=== PATIENT | male | born 1945 ===

== ENCOUNTER 2020-07-14 14:48 | Emergency (ER) | payer SELFPAY ==
[~2020-07-14] VITALS: Ht 172.7 cm; Wt 80.5 kg
--- NOTE | 2020-07-14 16:34 | NUR ---
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 JANNY
--- NOTE | 2020-07-14 16:48 | NUR ---
ASSUMED CARE OF PATIENT. PATIENT REPORTS HE WAS SEEN AT THE [facility] TODAY AND WAS TOLD HIS RIGHT SHOULDER IS DISLOCATED AND HE WAS SENT TO THE ER. VS STABLE. CALL LIGHT IN PLACE. WILL CONTINUE TO MONITOR.
--- NOTE | 2020-07-14 17:33 | NUR ---
DR DONAHUE HAS UPDATED PATIENT
== END 2020-07-15 03:42 | disposition home or self-care (01) ==
LOC: ED 15:18
DX: S43.084A Other dislocation of right shoulder joint, initial encounter (principal); W18.30XA Fall on same level, unspecified, initial encounter; Y93.89 Activity, other specified; Y92.89 Other specified places as the place of occurrence of the external cause; Y99.8 Other external cause status
CPT/HCPCS: 29105; 99283